=== PATIENT | male | born 1980 | race Caucasian/White ===

== ENCOUNTER 2018-02-18 19:36 | Emergency (ER) | payer BC, OTHER ==
[~2018-02-18] VITALS: Ht 175.3 cm; Wt 102.1 kg
[~2018-02-18 19:36] MED LIST: LORA10TA19 PO
[2018-02-18 19:39] VITALS: BP 142/58
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
--- NOTE | 2018-02-18 19:43 | NUR ---
PT.AMBUALTED TO ER BED 3
[2018-02-18] MEDS ORDERED: IBUPROFEN 600 MG TAB PO ONE (20:00)
--- NOTE | 2018-02-18 20:01 | NUR ---
PT TAKEN TO XRAY
[2018-02-18] MEDS ORDERED: IBUPROFEN 800 MG TAB ONE (20:10)
[2018-02-18 21:00] VITALS: BP 133/68
== END 2018-02-18 21:00 | disposition home or self-care (01) ==
LOC: MED 19:36
DX: S16.1XXA Strain of muscle, fascia and tendon at neck level, initial encounter (principal); Z79.899 Other long term (current) drug therapy; V49.40XA Driver injured in collision with unspecified motor vehicles in traffic accident, initial encounter; Y93.89 Activity, other specified; Y92.488 Other paved roadways as the place of occurrence of the external cause; Y99.8 Other external cause status
CPT/HCPCS: 71046; 72040; 72100; 99284